=== PATIENT | male | born 1960 | race Caucasian/White ===

== ENCOUNTER 2018-05-07 00:03 | Inpatient (IN) ==
[2018-05-07] MEDS ORDERED: SODIUM CHLORIDE 0.9% 1,000 ML IV STA ×2 (00:34→01:59)
[2018-05-07 00:47] LABS: PT Patient Result 10.9 SECS; Partial Thromboplastin Time 23.8 SECS (0-40)
[2018-05-07 00:58] LABS: Basophils # 0.1 10*3/uL (0.0-0.2); Basophils % 0.3 % (0.0-0.8); Eosinophils % 0.1 % (0.00-10.9); Red Blood Count 5.58 MC/CUMM (3.8-5.5)
[2018-05-07 01:04] LABS: Albumin 3.5 G/DL (3.4-5.0); Bilirubin,Total 0.8 MG/DL (0.2-1.0); CKMB % 0.7 %; Calcium 8.8 MG/DL (8.5-10.1); Potassium 3.9 MMOL/L (3.5-5.1); Total Protein 7.3 G/DL (6.4-8.3)
[2018-05-07 01:06] LABS: Troponin I Only 0.688 NG/ML (0.00-0.045)
[2018-05-07 01:30] LABS: Hematocrit 49.5 VOL% (42.0-52.0); Hemoglobin 17.7 GM/DL (14.0-18.0); Immature Granulocytes % 0.7 %; Immature Granulocytes Absolute 0.21 #; Lymphocytes # 1.7 10*3/uL (1.4-4.0); Lymphocytes % 5.7 % (21.2-54.2); Mean Corpuscular HGB Conc 35.8 GM/DL (32-36); Mean Corpuscular Hemoglobin 32 PG (27-34); Mean Corpuscular Volume 88.7 FL (87-102); Monocytes # 1.2 10*3/uL (0.11-0.8); Neutrophils # 27.3 10*3/uL (1.4-7.4); Neutrophils % 89.2 % (38.7-73.9); Platelet Count 397 T/CUMM (130-400); Red Cell Distribution Width 12.8 % (9.3-17.3); White Blood Count 30.6 T/CUMM (4-12)
[2018-05-07 02:30] LABS: Lactic Acid 2.2 MMOL/L (0.4-2.0)
[2018-05-07 02:48] LABS: Apearance,Urine CLEAR (Clear); Bilirubin,Urine Negative (Negative); Blood, Urine Small mg/dL (Negative); Glucose,Urine (UA) >=500 mg/dL (Negative); Granular Casts,Urine 3 /LPF (0-1); Hyaline Casts,Urine 15 /LPF (0-3); Ketones,Urine 20 mg/dL (Negative); Mucus,Urine Occasional /LPF (Occasional); Nitrite,Urine Negative (Negative); Protein,Urine 30 MG/DL; RBC,Urine 4 /HPF (0-4); Squamous Epithelial Cell,Urine Occasional /HPF (0-10); Urine Color Yellow (Yellow); Urine Specific Gravity 1.013 (1.001-1.035); WBC,Urine 6 /HPF (0-6)
[2018-05-07] MEDS ORDERED: ONDANSETRON 4 MG/2 ML VIAL IV PRN (03:16)
[2018-05-07] MEDS ORDERED: NITROGLYCERIN SL 0.4 MG TABLET SL PRN (03:16)
[2018-05-07] MEDS ORDERED: INSULIN REGULAR 100 UNIT/ML SUBCUT ONE (03:16)
[2018-05-07 03:54] LABS: Risk Ratio 6.5; VLDL CHOLESTEROL 62.4 MG/DL
[2018-05-07] MEDS: SODIUM CHLORIDE 0.9% 1,000 ML IV SCH ×3 (04:46→21:06)
[2018-05-07 07:44] LABS: Basophils % 0.2 % (0.0-0.8); Hematocrit 41.8 VOL% (42.0-52.0); Hemoglobin 14.5 GM/DL (14.0-18.0); Immature Granulocytes % 0.9 %; Immature Granulocytes Absolute 0.19 #; Lymphocytes # 1.7 10*3/uL (1.4-4.0); Lymphocytes % 8.1 % (21.2-54.2); Mean Corpuscular HGB Conc 34.7 GM/DL (32-36); Mean Corpuscular Hemoglobin 31 PG (27-34); Mean Corpuscular Volume 90.3 FL (87-102); Mean Platelet Volume 10.5 FL (9.6-12.0); Monocytes # 0.9 10*3/uL (0.11-0.8); Monocytes % 4.4 % (1.7-12.7); Neutrophils # 17.8 10*3/uL (1.4-7.4); Neutrophils % 86.4 % (38.7-73.9); Platelet Count 295 T/CUMM (130-400); Red Blood Count 4.63 MC/CUMM (3.8-5.5); White Blood Count 20.6 T/CUMM (4-12)
[2018-05-07 08:25] LABS: Hypochromasia 1+; Lymphocytes 10 % (20-55); Platelet Estimate Adequate; Segmented Neutrophils 88 % (50-85); Total Cells Counted 100
[2018-05-07] MEDS: ENOXAPARIN 40 MG/0.4 ML SYRINGE SUBCUT SCH (08:41)
[2018-05-07] MEDS: LISINOPRIL 20 MG TABLET PO SCH (08:41)
[2018-05-07] MEDS: METOPROLOL TARTRATE 50 MG TABLET PO SCH (08:41)
[2018-05-07] MEDS: ASPIRIN EC 325 MG TABLET PO SCH (08:41)
[2018-05-07 09:48] LABS: Albumin 2.8 G/DL (3.4-5.0); Bilirubin,Total 0.8 MG/DL (0.2-1.0); Calcium 7.9 MG/DL (8.5-10.1); Osmolality,Calculated 284.3 MOS/KG (273-304); Potassium 3.9 MMOL/L (3.5-5.1); Total Protein 6.2 G/DL (6.4-8.3)
[2018-05-07 09:50] LABS: Troponin I Only 1.77 NG/ML (0.00-0.045)
[2018-05-07 14:09] LABS: CKMB % 1.1 %
[2018-05-07 14:11] LABS: Troponin I Only 2.77 NG/ML (0.00-0.045)
[2018-05-08 06:01] LABS: Basophils # 0.1 10*3/uL (0.0-0.2); Basophils % 0.7 % (0.0-0.8); Eosinophils # 1.1 10*3/uL (0.0-0.87); Eosinophils % 9.3 % (0.00-10.9); Hematocrit 40.8 VOL% (42.0-52.0); Hemoglobin 13.9 GM/DL (14.0-18.0); Immature Granulocytes % 0.8 %; Immature Granulocytes Absolute 0.09 #; Lymphocytes # 3.4 10*3/uL (1.4-4.0); Lymphocytes % 29.6 % (21.2-54.2); Mean Corpuscular HGB Conc 34.1 GM/DL (32-36); Mean Corpuscular Hemoglobin 31 PG (27-34); Mean Corpuscular Volume 92.3 FL (87-102); Mean Platelet Volume 9.6 FL (9.6-12.0); Monocytes # 0.9 10*3/uL (0.11-0.8); Monocytes % 7.9 % (1.7-12.7); Neutrophils % 51.7 % (38.7-73.9); Platelet Count 241 T/CUMM (130-400); Red Blood Count 4.42 MC/CUMM (3.8-5.5); White Blood Count 11.6 T/CUMM (4-12)
[2018-05-08] MEDS: SODIUM CHLORIDE 0.9% 1,000 ML IV SCH ×3 (06:15→20:17)
[2018-05-08 08:13] LABS: CKMB % 1.1 %
[2018-05-08 08:19] LABS: Troponin I Only 2.81 NG/ML (0.00-0.045)
[2018-05-08] MEDS ORDERED: ASPIRIN EC 81 MG TABLET PO SCH (09:00)
[2018-05-08] MEDS: ASPIRIN EC 325 MG TABLET PO SCH (09:20)
[2018-05-08] MEDS: ENOXAPARIN 40 MG/0.4 ML SYRINGE SUBCUT SCH (09:20)
[2018-05-08] MEDS: METOPROLOL TARTRATE 50 MG TABLET PO SCH (09:20)
[2018-05-08] MEDS: LISINOPRIL 20 MG TABLET PO SCH (09:20)
[2018-05-08 09:41] LABS: Calcium 8.1 MG/DL (8.5-10.1); Osmolality,Calculated 281.3 MOS/KG (273-304); Potassium 4.3 MMOL/L (3.5-5.1)
[2018-05-08] MEDS ORDERED: diphenhydrAMINE CAP 25 MG CAPSULE PO ONE (09:42)
[2018-05-08] MEDS ORDERED: DIAZEPAM 5 MG TABLET PO ONE (09:42)
[2018-05-08] MEDS ORDERED: POTASSIUM CHLORIDE RIDER 10 MEQ in PREMIX 1 EACH IV PRN (09:42)
[2018-05-08] MEDS ORDERED: MAGNESIUM SULF RIDER 2 GM in PREMIX 1 EACH IV PRN (09:42)
[2018-05-08] MEDS ORDERED: LIDOCAINE 1%/EPI INJ 20 ML VIAL ONE (13:32)
[2018-05-08] MEDS ORDERED: HEPARIN/NACL 0.9% 2 UNITS/ML 1,000 ML IV ONE (13:32)
[2018-05-08] MEDS ORDERED: VERAPAMIL 5 MG/2 ML VIAL ONE (14:41)
[2018-05-08] MEDS ORDERED: NITROGLYCERIN DRIP 50 MG/250 ML BOTTLE IV ONE (14:41)
[2018-05-08] MEDS ORDERED: fentaNYL 100 MCG/2 ML VIAL ONE (14:41)
[2018-05-08] MEDS ORDERED: MIDAZOLAM 2 MG/2 ML VIAL ONE (14:41)
[2018-05-08] MEDS ORDERED: ADENOSINE 90 MG/30 ML VIAL IV ONE (15:07)
[2018-05-08] MEDS ORDERED: LIDOCAINE 1% 20 ML VIAL ONE (15:07)
[2018-05-08] MEDS ORDERED: ENOXAPARIN 60 MG/0.6 ML SYRINGE ONE (15:07)
[2018-05-08] MEDS ORDERED: TIROFIBAN 5,000 MCG/100 ML PREMIX IV ONE (15:32)
[2018-05-08] MEDS ORDERED: CLOPIDOGREL 300 MG TABLET ONE (15:45)
[2018-05-08] MEDS ORDERED: TIROFIBAN 5,000 MCG/100 ML PREMIX IV SCH (16:00)
[2018-05-09] MEDS: SODIUM CHLORIDE 0.9% 1,000 ML IV SCH (03:14)
[2018-05-09 05:53] LABS: Basophils # 0.1 10*3/uL (0.0-0.2); Basophils % 0.8 % (0.0-0.8); Eosinophils % 9.2 % (0.00-10.9); Hematocrit 42.2 VOL% (42.0-52.0); Hemoglobin 14.5 GM/DL (14.0-18.0); Immature Granulocytes % 0.9 %; Lymphocytes # 2.5 10*3/uL (1.4-4.0); Lymphocytes % 22.5 % (21.2-54.2); Mean Corpuscular HGB Conc 34.4 GM/DL (32-36); Mean Corpuscular Hemoglobin 31 PG (27-34); Mean Corpuscular Volume 91.1 FL (87-102); Mean Platelet Volume 9.7 FL (9.6-12.0); Monocytes # 0.9 10*3/uL (0.11-0.8); Monocytes % 7.9 % (1.7-12.7); Neutrophils # 6.5 10*3/uL (1.4-7.4); Neutrophils % 58.7 % (38.7-73.9); Platelet Count 245 T/CUMM (130-400); Red Blood Count 4.63 MC/CUMM (3.8-5.5); Red Cell Distribution Width 12.7 % (9.3-17.3); White Blood Count 11.1 T/CUMM (4-12)
[2018-05-09 06:27] LABS: Calcium 8.3 MG/DL (8.5-10.1); Osmolality,Calculated 279.3 MOS/KG (273-304); Potassium 4.3 MMOL/L (3.5-5.1)
[2018-05-09 06:32] LABS: Blood Urea Nitrogen 11 MG/DL (7-18); Calcium 8.3 MG/DL (8.5-10.1); Glucose 98 MG/DL (74-106); Osmolality,Calculated 277.4 MOS/KG (273-304); Potassium 4.2 MMOL/L (3.5-5.1); Sodium 140 MMOL/L (136-145)
[2018-05-09 07:48] VITALS: BP 142/75
[2018-05-09] MEDS: ASPIRIN EC 325 MG TABLET PO SCH (08:31)
[2018-05-09] MEDS: LISINOPRIL 20 MG TABLET PO SCH (08:31)
[2018-05-09] MEDS: METOPROLOL TARTRATE 50 MG TABLET PO SCH (08:31)
[2018-05-09] MEDS ORDERED: CLOPIDOGREL 75 MG TABLET PO SCH (09:00)
== END 2018-05-09 11:07 | disposition home or self-care (01) | DRG 247 ==
LOC: N.EDINP 00:03 → N.ED 00:03 → N.TELES 03:48
PROVIDERS: ADMIT Internal Medicine; ATTEND Internal Medicine
PROC: CLCCHCL (ICD-10-PCS; 2018-05-08 14:45)